=== PATIENT | male | born 1955 | race Caucasian/White ===

== ENCOUNTER 2021-07-03 08:25 | Outpatient (REF) | payer OTHER, SELFPAY ==
[2021-07-03 08:40] LABS: MANUAL DIFF FLAG NO
[2021-07-03 09:15] LABS: Basophils Percent Auto 0.4 % (0-2); Eosinophils Absolute Auto 0.1 X10*3/uL (0.0-0.4); Eosinophils Percent Auto 2.3 % (0-4); Hematocrit 44.2 % (42.0-52.0); Hemoglobin 14.7 g/dl (14.0-18.0); Imm Gran Abs Auto 0.01 X10*3/uL (0.00-0.03); Imm Gran Pct Auto 0.2 % (0.0-0.4); Lymphocytes Absolute Auto 1.7 X10*3/uL (1.2-4.9); Lymphocytes Percent Auto 30.3 % (20-40); Mean Corpuscular HGB Conc 33.3 g/dl (31.0-36.0); Mean Corpuscular Hemoglobin 30.1 pg (27.0-33.0); Mean Corpuscular Volume 90.4 fL (80.0-98.0); Mean Platelet Volume 9.7 fL (9.4-12.4); Monocytes Absolute Auto 0.5 X10*3/uL (0.1-1.2); Monocytes Percent Auto 8.4 % (2-11); Neutrophils Absolute Auto 3.3 x10*3/uL (2.0-8.3); Neutrophils Percent Auto 58.4 % (45-73); Platelet Count 216 X10*3/uL (160-400); Red Blood Count 4.89 X10*6/uL (4.60-5.80); Red Cell Distribution Width 12.2 % (11.0-16.0); White Blood Count 5.6 X10*3/uL (4.8-10.8)
[2021-07-03 10:07] LABS: Alanine Aminotransferase 25 U/L (0-40); Albumin Level 4.2 g/dL (3.5-5.0); Alkaline Phosphatase 52 U/L (39-117); Anion Gap 12 (12-20); Aspartate Amino Transferase 24 U/L (5-37); Bilirubin Total 0.7 mg/dL (0.0-1.0); Blood Urea Nitrogen 20 mg/dL (9-16); Calcium 9.6 mg/dL (8.4-10.2); Carbon Dioxide 27 mmol/L (22-29); Chloride 108 mmol/L (96-108); Cholesterol 190 mg/dL; Estimated Glomerular Filt Rate > 60; Glucose Fasting 94 mg/dL (60-99); HDL Cholesterol 50 mg/dL; LDL Cholesterol Calculated 121 mg/dl; Potassium 4.7 mmol/L (3.3-5.1); Sodium 142 mmol/L (135-145); Triglycerides 98 mg/dL
[2021-07-03 10:16] LABS: Prostate Specific Antigen 0.37 ng/mL (<0.05-4.0)
== END 2021-07-03 08:26 | disposition home or self-care (01) ==
LOC: HO.LAB 08:25
PROVIDERS: Visit Provider Internal Medicine
DX: Z12.5 Encounter for screening for malignant neoplasm of prostate (principal); E78.00 Pure hypercholesterolemia, unspecified; N40.0 Benign prostatic hyperplasia without lower urinary tract symptoms; J30.1 Allergic rhinitis due to pollen
CPT/HCPCS: 36415; 80053; 80061; 84153; 85025

== ENCOUNTER 2022-07-05 15:49 | Outpatient (REF) | payer MEDICARE, SELFPAY ==
[2022-07-05 16:10] LABS: MANUAL DIFF FLAG NO
[2022-07-05 17:29] LABS: Basophils Percent Auto 0.3 % (0-2); Eosinophils Absolute Auto 0.2 X10*3/uL (0.0-0.4); Eosinophils Percent Auto 3.2 % (0-4); Hematocrit 42.6 % (42.0-52.0); Hemoglobin 14.1 g/dl (14.0-18.0); Imm Gran Abs Auto 0.01 X10*3/uL (0.00-0.03); Imm Gran Pct Auto 0.2 % (0.0-0.4); Lymphocytes Absolute Auto 1.9 X10*3/uL (1.2-4.9); Lymphocytes Percent Auto 31.8 % (20-40); Mean Corpuscular HGB Conc 33.1 g/dl (31.0-36.0); Mean Corpuscular Hemoglobin 30.6 pg (27.0-33.0); Mean Corpuscular Volume 92.4 fL (80.0-98.0); Mean Platelet Volume 9.9 fL (9.4-12.4); Monocytes Absolute Auto 0.4 X10*3/uL (0.1-1.2); Neutrophils Absolute Auto 3.4 x10*3/uL (2.0-8.3); Neutrophils Percent Auto 57.5 % (45-73); Platelet Count 212 X10*3/uL (160-400); Red Blood Count 4.61 X10*6/uL (4.60-5.80)
[2022-07-05 17:42] LABS: Anion Gap 12 (12-20); Blood Urea Nitrogen 14 mg/dL (9-16); Calcium 9.5 mg/dL (8.4-10.2); Carbon Dioxide 27 mmol/L (22-29); Chloride 108 mmol/L (96-108); Estimated Glomerular Filt Rate > 60; Glucose Random 87 mg/dL (60-115); Potassium 5.3 mmol/L (3.3-5.1); Sodium 142 mmol/L (135-145)
== END 2022-07-05 15:50 | disposition home or self-care (01) ==
LOC: HO.LAB 15:49
PROVIDERS: PCP Internal Medicine; Visit Provider Internal Medicine
DX: Z01.818 Encounter for other preprocedural examination (principal); M54.9 Dorsalgia, unspecified
CPT/HCPCS: 36415; 80048; 85025

== ENCOUNTER 2022-07-09 07:37 | Outpatient (REF) | payer MEDICARE, SELFPAY ==
[2022-07-09 07:56] LABS: MANUAL DIFF FLAG NO
[2022-07-09 08:55] LABS: Basophils Percent Auto 0.3 % (0-2); Eosinophils Absolute Auto 0.2 X10*3/uL (0.0-0.4); Eosinophils Percent Auto 3.1 % (0-4); Hemoglobin 14.6 g/dl (14.0-18.0); Imm Gran Abs Auto 0.01 X10*3/uL (0.00-0.03); Imm Gran Pct Auto 0.2 % (0.0-0.4); Lymphocytes Absolute Auto 1.7 X10*3/uL (1.2-4.9); Lymphocytes Percent Auto 29.7 % (20-40); Mean Corpuscular HGB Conc 33.2 g/dl (31.0-36.0); Mean Corpuscular Hemoglobin 30.4 pg (27.0-33.0); Mean Corpuscular Volume 91.7 fL (80.0-98.0); Mean Platelet Volume 9.5 fL (9.4-12.4); Monocytes Absolute Auto 0.5 X10*3/uL (0.1-1.2); Monocytes Percent Auto 8.2 % (2-11); Neutrophils Absolute Auto 3.4 x10*3/uL (2.0-8.3); Neutrophils Percent Auto 58.5 % (45-73); Platelet Count 229 X10*3/uL (160-400); Red Cell Distribution Width 11.8 % (11.0-16.0); White Blood Count 5.7 X10*3/uL (4.8-10.8)
[2022-07-09 09:19] LABS: Alanine Aminotransferase 24 U/L (0-40); Albumin Level 4.4 g/dL (3.5-5.0); Alkaline Phosphatase 58 U/L (39-117); Anion Gap 15 (12-20); Aspartate Amino Transferase 26 U/L (5-37); Bilirubin Total 0.8 mg/dL (0.0-1.0); Blood Urea Nitrogen 12 mg/dL (9-16); Calcium 9.8 mg/dL (8.4-10.2); Carbon Dioxide 27 mmol/L (22-29); Chloride 105 mmol/L (96-108); Cholesterol 180 mg/dL; Estimated Glomerular Filt Rate > 60; Glucose Random 91 mg/dL (60-115); HDL Cholesterol 47 mg/dL; LDL Cholesterol Calculated 115 mg/dl; Potassium 4.8 mmol/L (3.3-5.1); Sodium 142 mmol/L (135-145); Triglycerides 94 mg/dL
[2022-07-09 10:16] LABS: Prostate Specific Antigen 0.39 ng/mL (<0.05-4.0)
== END 2022-07-09 07:38 | disposition home or self-care (01) ==
LOC: HO.LAB 07:37
PROVIDERS: PCP Internal Medicine; Visit Provider Internal Medicine
DX: Z12.5 Encounter for screening for malignant neoplasm of prostate (principal); E78.00 Pure hypercholesterolemia, unspecified; N40.0 Benign prostatic hyperplasia without lower urinary tract symptoms; J30.1 Allergic rhinitis due to pollen
CPT/HCPCS: 36415; 80053; 80061; 84153; 85025

== ENCOUNTER 2023-08-09 07:48 | Outpatient (REF) | payer BC, SELFPAY ==
[2023-08-09 08:05] LABS: MANUAL DIFF FLAG NO
[2023-08-09 08:36] LABS: Basophils Percent Auto 0.6 % (0-2); Eosinophils Absolute Auto 0.2 X10*3/uL (0.0-0.4); Eosinophils Percent Auto 3.6 % (0-4); Hematocrit 41.4 % (42.0-52.0); Hemoglobin 14.1 g/dl (14.0-18.0); Lymphocytes Absolute Auto 1.7 X10*3/uL (1.2-4.9); Lymphocytes Percent Auto 34.3 % (20-40); Mean Corpuscular HGB Conc 34.1 g/dl (31.0-36.0); Mean Corpuscular Hemoglobin 31.6 pg (27.0-33.0); Mean Corpuscular Volume 92.8 fL (80.0-98.0); Mean Platelet Volume 9.7 fL (9.4-12.4); Monocytes Absolute Auto 0.4 X10*3/uL (0.1-1.2); Monocytes Percent Auto 8.1 % (2-11); Neutrophils Absolute Auto 2.7 x10*3/uL (2.0-8.3); Neutrophils Percent Auto 53.4 % (45-73); Platelet Count 185 X10*3/uL (160-400); Red Blood Count 4.46 X10*6/uL (4.60-5.80); Red Cell Distribution Width 12.5 % (11.0-16.0)
[2023-08-09 09:09] LABS: Alanine Aminotransferase 19 U/L (0-40); Alkaline Phosphatase 52 U/L (39-117); Anion Gap 10 (12-20); Aspartate Amino Transferase 22 U/L (5-37); Bilirubin Total 0.5 mg/dL (0.0-1.0); Blood Urea Nitrogen 20 mg/dL (9-16); Calcium 9.4 mg/dL (8.4-10.2); Carbon Dioxide 27 mmol/L (22-29); Chloride 109 mmol/L (96-108); Cholesterol 186 mg/dL (<200); Estimated Glomerular Filt Rate > 60; Glucose Fasting 98 mg/dL (60-99); HDL Cholesterol 55 mg/dL (>40); LDL Cholesterol Calculated 113 mg/dL (<100); Sodium 142 mmol/L (135-145); Total Protein 6.9 g/dL (6.5-8.0); Triglycerides 92 mg/dL (<150)
[2023-08-09 09:31] LABS: Prostate Specific Antigen 0.38 ng/mL (<0.05-4.0)
== END 2023-08-09 07:49 | disposition home or self-care (01) ==
LOC: HO.LAB 07:48
PROVIDERS: PCP Internal Medicine; Visit Provider Internal Medicine
DX: Z12.5 Encounter for screening for malignant neoplasm of prostate (principal); E78.00 Pure hypercholesterolemia, unspecified; N40.0 Benign prostatic hyperplasia without lower urinary tract symptoms
CPT/HCPCS: 36415; 80053; 80061; 84153; 85025

== ENCOUNTER 2024-05-09 14:06 | Outpatient (REF) | payer BC, SELFPAY ==
[2024-05-09 15:07] LABS: Appearance Urine Clear; Color Urine Yellow; Glucose Urine UA Negative (Negative); Leukocyte Esterase Urine Negative (Negative); Nitrite Urine Negative (Negative); Specific Gravity - Urine <= 1.005 (1.005-1.025); Urine Blood Negative (Negative); Urine Ketones Negative (Negative); Urine Protein Negative (Neg-Trace)
[2024-05-09 15:35] LABS: Anion Gap 9 (12-20); Blood Urea Nitrogen 15 mg/dL (9-16); Calcium 9.9 mg/dL (8.4-10.2); Carbon Dioxide 28 mmol/L (22-29); Chloride 110 mmol/L (96-108); Estimated Glomerular Filt Rate > 60; Glucose Random 99 mg/dL (60-115); Potassium 4.4 mmol/L (3.3-5.1); Sodium 143 mmol/L (135-145)
[2024-05-09 15:51] LABS: Prostate Specific Antigen 0.45 ng/mL (<0.05-4.0)
== END 2024-05-09 14:07 | disposition home or self-care (01) ==
LOC: HO.LAB 14:06
PROVIDERS: PCP Internal Medicine; Visit Provider Internal Medicine
DX: R35.0 Frequency of micturition (principal); Z12.5 Encounter for screening for malignant neoplasm of prostate
CPT/HCPCS: 36415; 80048; 81003; 84153; 87086

== ENCOUNTER 2024-07-25 08:05 | Outpatient (REF) | payer BC, SELFPAY ==
[2024-07-25 08:24] LABS: MANUAL DIFF FLAG NO
[2024-07-25 08:34] LABS: Basophils Percent Auto 0.3 % (0-2); Eosinophils Absolute Auto 0.2 X10*3/uL (0.0-0.4); Eosinophils Percent Auto 3.2 % (0-4); Hematocrit 42.3 % (42.0-52.0); Hemoglobin 14.5 g/dl (14.0-18.0); Imm Gran Abs Auto 0.02 X10*3/uL (0.00-0.03); Imm Gran Pct Auto 0.3 % (0.0-0.4); Lymphocytes Percent Auto 32.9 % (20-40); Mean Corpuscular HGB Conc 34.3 g/dl (31.0-36.0); Mean Corpuscular Hemoglobin 30.8 pg (27.0-33.0); Mean Corpuscular Volume 89.8 fL (80.0-98.0); Mean Platelet Volume 8.9 fL (9.4-12.4); Monocytes Absolute Auto 0.5 X10*3/uL (0.1-1.2); Monocytes Percent Auto 7.6 % (2-11); Neutrophils Absolute Auto 3.3 x10*3/uL (2.0-8.3); Neutrophils Percent Auto 55.7 % (45-73); Platelet Count 224 X10*3/uL (160-400); Red Blood Count 4.71 X10*6/uL (4.60-5.80); Red Cell Distribution Width 12.1 % (11.0-16.0)
[2024-07-25 08:57] LABS: Appearance Urine Clear; Color Urine Yellow; Glucose Urine UA Negative (Negative); Leukocyte Esterase Urine Negative (Negative); Nitrite Urine Negative (Negative); Specific Gravity - Urine 1.015 (1.005-1.025); Urine Blood Negative (Negative); Urine Ketones Negative (Negative); Urine Protein Negative (Neg-Trace)
[2024-07-25 09:13] LABS: Alanine Aminotransferase 30 U/L (0-40); Albumin Level 4.1 g/dL (3.5-5.0); Alkaline Phosphatase 49 U/L (39-117); Anion Gap 10 (12-20); Aspartate Amino Transferase 28 U/L (5-37); Bilirubin Total 0.5 mg/dL (0.0-1.0); Blood Urea Nitrogen 18 mg/dL (9-16); Calcium 9.6 mg/dL (8.4-10.2); Carbon Dioxide 26 mmol/L (22-29); Chloride 111 mmol/L (96-108); Cholesterol 183 mg/dL (<200); Estimated Glomerular Filt Rate > 60; Glucose Fasting 91 mg/dL (60-99); HDL Cholesterol 42 mg/dL (>40); LDL Cholesterol Calculated 122 mg/dL (<100); Potassium 4.1 mmol/L (3.3-5.1); Sodium 143 mmol/L (135-145); Total Protein 7.1 g/dL (6.5-8.0); Triglycerides 96 mg/dL (<150)
[2024-07-25 09:29] LABS: Prostate Specific Antigen 0.47 ng/mL (<0.05-4.0)
== END 2024-07-25 08:06 | disposition home or self-care (01) ==
LOC: HO.LAB 08:05
PROVIDERS: PCP Internal Medicine; Visit Provider Internal Medicine
DX: N40.0 Benign prostatic hyperplasia without lower urinary tract symptoms (principal); E78.00 Pure hypercholesterolemia, unspecified; Z12.5 Encounter for screening for malignant neoplasm of prostate
CPT/HCPCS: 36415; 80053; 80061; 81003; 84153; 85025

== ENCOUNTER 2024-09-18 08:27 | Outpatient (AMB) | payer BC, SELFPAY ==
[2024-09-18 08:41] VITALS: BP 118/72; PULSE 54; O2SAT 97; BMI 30.6
--- NOTE | 2024-09-18 08:41 | AM.OFFWIN_ITS ---
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 Patient Tobacco Use Status: Never used Tobacco Allergies No Known Allergies Allergy (Mild, Unverified 09/18/24 08:42) NONE Medication List - Last Reconciled 09/18/24 by Gabriela Andersen MD pravastatin mg PO DAILY Do you need a note to return to daycare/school/sports/work: No HPI EP Pain in lt side of neck HPI Details History - The patient is a 69-year-old male pres enting with neck pain. 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 - Pain is noted on the left side of the neck radiating into the shoulder and is exacerbated with movement. - Previous intermittent episodes of cerv ical pain exist but were mild. - Initial management included non-steroi matilda anti-inflammatory drugs and cold therapy. - History of lower back pain post-microd iscectomy with associated scar tissue was notable for requiring gabapentin therapy, later discontinued due to drowsiness. - Patient is on Pravastatin for dyslipid emia management. - No evidence of radicular symptoms or p ast cervical issues interfering significantly with function prior to this incident. Problem List - Neck Pain due to Suspected Cervical Mu scle Strain or Pinched Nerve - Lower Back Pain status post Microdisce ctomy - Dyslipidemia (Patient on Pravastatin) Patient Instructions - Start the prescribed medication for in flammation as directed. - Discontinue ibuprofen once you begin t he new medication. - Schedule an appointment with your prim millinocket care provider if further concerns arise or for continuity of care. - Attend the scheduled X-ray today and a wait further instruction based on findings. Review of Systems - General: No fever no chills - Neurological: No headaches no dizziness - Ear nose throat: No sore throat no hearing difficulty no ear pain - Cardiovascular: No syncope, no chest pain, no palpitations - Gastrointestinal: No nausea vomiting or diarrhea Physical Exam General: No acute distress HEENT: No acute findings Neck: Tenderness on the left side, pain radiating to the shoulder, limited range of motion Respiratory system: Able to talk in full sentences, no audible wheeze Gastrointestinal: No pain Extremities: No new findings GASOLINE FINISHER: Alert awake oriented x3 motor sensory intact Skin: Normal turgor PFSH Social History Patient Tobacco Use Status: Never used Tobacco Physical Exam Vital Signs: Last Vital Signs Pulse 54 09/18/24 08:41 BP 118/72 09/18/24 08:41 Pulse Ox 97 09/18/24 08:41 Oxygen Delivery Method Room Air 09/18/24 08:41 BMI result Body Mass Index 30.6 Assessment & Plan Assessment & Plan (1) Neck pain: Code(s): M54.2 - Cervicalgia Plan History - The patient is a 69-year-old male presenting with neck pain. 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 - Pain is noted on the left side of the neck radiating into the shoulder and is exacerbated with movement. - Previous intermittent episodes of cervical pain exist but were mild. - Initial management included non-steroidal anti-inflammatory drugs and cold therapy. - History of lower back pain post-microdiscectomy with associated scar tissue was notable for requiring gabapentin therapy, later discontinued due to drowsiness. - Patient is on Pravastatin for dyslipidemia management. - No evidence of radicular symptoms or past cervical issues interfering significantly with function prior to this incident. Problem List - Neck Pain due to Suspected Cervical Muscle Strain or Pinched Nerve - Lower Back Pain status post Microdiscectomy - Dyslipidemia (Patient on Pravastatin) Patient Instructions - Start the prescribed medication for inflammation as directed. - Discontinue ibuprofen once you begin the new medication. - Schedule an appointment with your primary care provider if further concerns arise or for continuity of care. - Attend the scheduled X-ray today and await further instruction based on findings. Orders: Orders XR cervical spine 2V Today M54.2 - Cervicalgia Medications: New diclofenac sodium 75 mg PO BID 10 days 20 tabs 0RF pain prednisone 20 mg PO DAILY 3 days 3 tabs 0RF Coding Level of Care Code New Pt Level 3 (81908) Diagnoses Neck pain M54.2
--- OUTSIDE RECORDS SUMMARY | 2024-09-18 08:49 | XMS_ITS | Clinical Summary ---
Author Organization [facility] Address [address] [place] [address] Care Team Providers Care Handbag Designer Name Role Phone Unavailable Primary Care Provider Unavailabl e Social History Tobacco Use Types Packs/Day Years Used Date Smoking Tobacco: Never Assessed Sex and Gender Information Value Date Recorded Sex Assigned at Not on file Gender Identity Not on file Sexual Orientation Not on file Plan of Treatment Health Maintenance Due Date Last Done Comments Hepatitis C Virus Screening 1955 DTaP/Tdap/Td Vaccines (1 - Tdap) 1974 Pneumococcal Vaccines 50+ (1 of 1 - PCV) 2005 Zoster (Shingles) Vaccine (1 of 2) 2005 COVID-19 Vaccine ( - 2023-2 5 season) 2024 RSV Vaccine 60 years and old er and Patients (1 - 1-dose 75+ series) 2030 Hepatitis B Vaccines Aged Out No long er eligible based on patient's age to complete this topic
--- OUTSIDE RECORDS SUMMARY | 2024-09-18 08:49 | XMS_ITS | Clinical Summary ---
Author Organization [facility] Address [address] [place] [address] Care Team Providers Care Rolling Machine Operator Automatic Name Role Phone Darci Montano MD Primary Care Provider [phone] Allergies No known active allergies Medications Medication Sig Dispensed Refills Start Date End Date Status fluticasone (FLONASE) 50 MCG/ACT nasal spray daily. 11 06/07/2018 Active pravastatin (PRAVACHOL) tablet 40 mg Take 1 tablet by mouth daily. 0 06/09/2018 Active ezetimibe (ZETIA) tablet 10 mg Take 1 tablet (10 mg total) by mouth daily. 90 tablet 3 07/24/2018 Active Active Problems Problem Noted Date Diagnosed Date Carotid bruit 06/12/2018 Mixed dyslipidemia 06/12/2018 Vitamin D deficiency 06/12/2018 Social History Tobacco Use Types Packs/Day Years Used Date Smoking Tobacco: Former Smokeless Tobacco: Never Sex and Gender Information Value Date Recorded Sex Assigned at Not on file Gender Identity Not on file Sexual Orientation Not on file Last Filed Vital Signs Vital Sign Reading Time Taken Comments Blood Pressure 118/70 08/17/2018 3:46 PM EST Pulse 47 07/24/2018 3:23 PM EST Temperature - - Respiratory Rate - - Oxygen Saturation - - Inhaled Oxygen Concentration - - Weight 90.7 kg (200 lb) 08/17/2018 3:46 PM EST Height 172.7 cm (5' 8 ) 08/17/2018 3:46 PM EST Body Mass Index 30.41 08/17/2018 3:46 PM EST Plan of Treatment Health Maintenance Due Date Last Done Comments Hepatitis C Screening 1955 COVID-19 Vaccine (#1) 1955 Depression Screening 1967 Preventative Health Evaluation 1973 DTap / Tdap / Td (1 - Tdap) 1974 Colon Cancer Screening (Colonoscopy) 02/27/2000 Shingrix-Zoster Vaccine (1 of 2) 2005 Fall Risk Assessment 02/27/2020 Pneumococcal Vaccine (1 of 1 - PCV) 02/27/2020 Influenza Vaccine (#1) 2024 RSV Adult > 60+ Yrs or Pregn ant (1 - 1-dose 75+ series) 2030 Hepatitis B Vaccines Aged Out No long er eligible based on patient's age to complete this topic RSV Ped < 20 months Aged Out No longe r eligible based on patient's age to complete this topic Care Teams Rolling Machine Operator Automatic Relationship Specialty Start Date End Date Darci Montano MD [address] [place] [address] [address] [place] [address] PCP - General Systems Development Manager 04/18/18
== END 2024-09-18 09:38 | disposition home or self-care (01) ==
PROVIDERS: PCP Internal Medicine; Visit Provider Internal Medicine
DX: M54.2 Cervicalgia (principal)

== ENCOUNTER 2024-09-18 08:27 | Outpatient (REF) | payer BC, SELFPAY ==
--- NOTE | ~2024-09-18 | XR_ITS ---
EXAMINATION: XR CERVICAL SPINE CLINICAL INFORMATION: M54.2 - Cervicalgia COMPARISON: None available. TECHNIQUE: 3 views of the cervical spine were obtained. FINDINGS: There is mild straightening of cervical lordosis. The vertebral heights and alignment is normal. There is mild loss of C5-C6, C6-7 and C7-T1 disc heights with ventral spondylosis. No visible acute fracture, dislocation or lytic process seen. The paravertebral soft tissues are normal. XR/XR cervical spine 2V IMPRESSION: Mild degenerative disc changes C5-C6, C6 testis 7 and C7-T1 disc levels with ventral spondylosis. No visible acute fracture or dislocation seen. Electronically signed by: Bogdan Callaway MD 09/18/2024 02:01 PM DELICIA
--- OUTSIDE RECORDS SUMMARY | 2024-09-18 09:43 | XMS_ITS | Clinical Summary ---
Author Organization [facility] Address [address] [place] [address] Care Team Providers Care Coppersmith Helper Name Role Phone Unavailable Primary Care Provider [...]
--- OUTSIDE RECORDS SUMMARY | 2024-09-18 09:43 | XMS_ITS | Clinical Summary ---
Author Organization [facility] Address [address] [place] [address] Care Team Providers Care Adjustment Supervisor Name Role Phone Darci Montano MD Primary Care Provider [phone] Allergies No known active allergies Medications Medication [...] age to complete this topic Care Teams Adjustment Supervisor Relationship Specialty Start Date End Date Darci Montano MD [address] [place] [address] [address] [place] [address] PCP - General Prescription Eyeglass Maker 04/18/18
== END 2024-09-18 08:28 | disposition home or self-care (01) ==
LOC: HO.HMGCX 08:27
PROVIDERS: PCP Internal Medicine; Visit Provider Internal Medicine
DX: M54.2 Cervicalgia (principal)
CPT/HCPCS: 72040

== ENCOUNTER → 2024-09-18 09:03 | Outpatient (BNV) | payer BC, SELFPAY | PROVIDERS: PCP Internal Medicine; Visit Provider Radiology Diagnostic Radiology | DX: M50.320 Other cervical disc degeneration, mid-cervical region, unspecified level (principal) | CPT/HCPCS: 72040 ==

== ENCOUNTER 2025-01-29 08:15 | Outpatient (AMB) | payer BC, SELFPAY ==
--- NOTE | 2025-01-29 08:16 | MHC.PC.OV ---
Vital Signs 01/29/25 08:19 01/29/25 08:23 Height 5 ft 9 in Weight 92.533 kg BP 118/70 Blood Pressure Location Lt brachial Position Sitting Respiration 14 Pulse 47 L Temp 97.4 F Temp Source Temporal Artery Scan Pulse Oximetry (%) 99 Oxygen Delivery Method Room Air Intake Visit Reasons: annual Gis Physical Scientist Required: No Accompanied by: Self / Same As Patient Allergies No Known Allergies Allergy (Mild, Verified 01/29/25 08:16) NONE Tobacco use date assessed: 01/29/25 HPI HPI Comments History of Present Illness Details 69-year-old male with history of hyperlipidemia, BPH, lumbar disc herniation presents to the office today for management of chronic conditions, to establish care, and for annual physical exam. He currently lives with his and feels safe there. Drinks alcohol twice weekly, 2 drinks per day. History of cigarettes in high school/college and then stopped. Remote history LSD and MJ use in college. He does exercise regularly lifting weights and does follow a healthy diet. He is retired and previously worked in engineering management. Lumbar disc herniation-s/p diskectomy at [facility] L4-L5. He does still have some nerve damage with paresthesias in the right lower extremity and absent patellar reflex. He has gone through extensive physical therapy and does find this helpful. He is now following with [facility] sports on an as-needed basis and has received cortisone injections. He did discontinue his gabapentin. HLD- on pravastatin. Saw cardiology in [place] and was given a booster . Has had negative stress tests Hearing loss/tinnitus-following with audiology in [facility] and does wear hearing aids which has helped both his hearing and tinnitus. BPH- no luts Concerns: Feels bloated, has gained weight last week or so. No changes in diet. Not walking as much or working as much. Health maintenance: Screening colonoscopy 2017, due 2027 PSA up-to-date ROS: General: No fevers, malaise, unintentional weight loss HEENT: No blurred vision, diplopia. No sore throat, nasal congestion, rhinorrhea, sinus pain, ear pain. No hearing loss Neck - no adenopathy Cardiovascular: No chest pain, palpitations, or leg edema Respiratory: No shortness of breath, wheezing, cough GI: No dysphagia, odynophagia, globus sensation. No abdominal pain, nausea, vomiting, diarrhea, constipation, melena, hematochezia : No dysuria, hematuria, increased urinary frequency, decreased urinary output. No testicular swelling or pain. No penile discharge MSK: see hpi Neuro: No headaches, weakness, paresthesias Psych: no depression/anxiery. No AH/VH. No SI/HI Skin: No rashes or lesions EXAM: Constitutional - Awake and Alert, No apparent distress Eyes - PERRLA, EOMI. Anicteric Ears - external ears normal, canals clear, TMs intact and pearly lamar with good cone of light Nose- septum midline, nares clear, no sinus tenderness Mouth/throat- mucosa moist, tongue and uvula midline, no erythema/edema or tonsillar adenopathy. Neck-trachea midline, thyroid symmetric without palpable nodules, no adenopathy Cardiovascular - S1S2, RRR, No edema Respiratory - Normal lung expansion, Normal respiratory effort, No respiratory distress, CTA bilaterally Gastrointestinal - NT / ND; +BS; No rebound or guarding - No CVA tenderness Extremities - no calf tenderness bilaterally, no swelling Musculoskeletal - Normal inspection, normal ROM Skin - Warm/Dry, no concerning lesions Neurological - Alert & oriented x3, CN II-XII in tact, 5/5 strength BUE and BLE, 2+ patellar reflex LLE absent RLE, sensation intact Psychological - Appropriate affect . [facility] Medical History (Updated 01/29/25 @ 09:05 by LUAN Sandoval) Hearing loss of both ears Hyperlipidemia BPH (benign prostatic hyperplasia) Surgical History (Updated 01/29/25 @ 08:32 by LUAN Sandoval) H/O umbilical hernia repair S/P anterior Bankart repair of left shoulder S/P diskectomy History of colonoscopy (~06/28/18) Family History (Updated 01/29/25 @ 08:47 by LUAN Sandoval) Mother COPD (chronic obstructive pulmonary disease) Social History Patient Tobacco Use Status: Former Tobacco user e-Cigarette/Vaping Use: Never Used Questionnaire PHQ-9 Over the last 2 weeks, how often have you been bothered by any of the following problems? 1. Little interest or pleasure in doing things: not at all 2. Feeling down, depressed, or hopeless: not at all 3. Trouble falling or staying asleep, or sleeping too much: not at all 4. Feeling tired or having little energy: not at all 5. Poor appetite or overeating: not at all 6. Feeling bad about yourself - or that you are a failure or have let yourself or your family down: not at all 7. Trouble concentrating on things, such as reading the newspaper or watching television: not at all 8. Moving or speaking so slowly that other people could have noticed. Or the opposite - being so fidgety or restless that you have been moving around a lot more than usual: not at all 9. Thoughts that you would be better off or of hurting yourself in some way: not at all Total score: 0 Depression Screening Interpretation: Negative Depression Screening Done: Yes 15240 - PHQ-9 Billing: Yes Source: Developed by Drs. Saturnino Martínez, Dafne De Los Santos, Adonis Taylor and colleagues, with an educational yoan from [employer]. Thrive Questionnaire Date Thrive assessed: 01/29/25 I am a: Patient What is your living situation today?: I have a steady place to live Within the past 12 months, did the food you bought not last and you didn't have the money to get more?: Never true Within the past 12 months, did you worry whether your food would run out before you got money to buy more?: Never true Do you have trouble paying for medicines?: No Do you have trouble getting transportation to medical appointments?: No Do you have trouble paying your heating and electricity bill?: No Do you have trouble taking care of your child, family member or friend?: No Do you have trouble with day-to-day activities such as bathing, preparing meals, shopping, managing finances, etc.?: No Are you currently unemployed and looking for a job?: No Are you interested in more education?: No THRIVE Score: 0 AUDIT C Alcohol Use Questionnaire (AUDIT-C) 1. How often do you have a drink containing alcohol?: 2-4 times a month 2. How many drinks containing alcohol do you have on a typical day when you are drinking?: 1 or 2 Total Score: 2 HIRO-7 AMB Questionnaire HIRO-7 Date HIRO - 7 assessed: 01/29/25 Feeling nervous, anxious, or on edge: 0 = Not at all Not being able to stop or control worryin = Not at all Worrying too much about different things: 0 = Not at all Trouble relaxin = Not at all Being so restless that it is hard to sit still: 0 = Not at all Becoming easily annoyed or irritable: 0 = Not at all Feeling afraid as if something awful might happen: 0 = Not at all Total HIRO-7 score (0-4 normal; 5-9 mild; 10-14 moderate; 15-21 severe): 0 Source: Developed by Drs. Saturnino Martínez, Dafne De Los Santos, Adonis Taylor and colleagues, with an educational yoan from [employer]. HIRO-7 Assessment Billing HIRO-7 Assessment Tool: HIRO-7 Assessment 77899 Physical exam (Primary Care) Vital Signs: Last Vital Signs Temp 97.4 F 01/29/25 08:23 Pulse 47 L 01/29/25 08:23 Resp 14 01/29/25 08:23 BP 118/70 01/29/25 08:23 Pulse Ox 99 01/29/25 08:23 Oxygen Delivery Method Room Air 01/29/25 08:23 Tobacco/Smoking Status: Tobacco use Status Tobacco use date assessed 01/29/25 01/29/25 08:25 Patient Tobacco Use Status Former Tobacco user 01/29/25 08:25 e-Cigarette/Vaping Use Never Used 01/29/25 08:25 PHQ-9: PHQ-9 Score PHQ-9: Total score 0 01/29/25 08:55 Depression Screening Interpretation: Negative Thrive Assessment: Date of Thrive Assessment Date Thrive assessed 01/29/25 01/29/25 08:55 Coding Level of Care Code Est Pt Level 4 (97357) Est Pt Prev Care >65y(53769) Diagnoses Routine medical exam Z00.00 Hyperlipidemia E78.5 BPH (benign prostatic hyperplasia) N40.0 Abdominal bloating R14.0 Hearing loss of both ears H91.93 Additional Codes PHQ-9 - 22037 - PHQ-9 Billing: Yes ([id number]) HIRO-7 Assessment Billing - HIRO-7 Assessment Tool: HIRO-7 Assessment 33408 ([id number]) Assessment & Plan Assessment & Plan (1) Routine medical exam: Code(s): Z00.00 - Encounter for general adult medical examination without abnormal findings Plan: 69-year-old male presenting for annual physical exam and found to be in a good state of general health. Plan as below. (2) Hyperlipidemia: Code(s): E78.5 - Hyperlipidemia, unspecified Category: Medical Plan: Lipid panel ordered. Continue pravastatin. (3) BPH (benign prostatic hyperplasia): Code(s): N40.0 - Benign prostatic hyperplasia without lower urinary tract symptoms Category: Medical Plan: Stable. No LUTS (4) Abdominal bloating: Code(s): R14.0 - Abdominal distension (gaseous) Category: Medical Plan: Given information on FODMAP diet. Can also use simethicone as needed (5) Hearing loss of both ears: Code(s): H91.93 - Unspecified hearing loss, bilateral Category: Medical Plan: Stable with hearing aids Plan Routine screening labs as ordered below Continue with screening colonoscopies and PSA Continue following for annual skin exams and use sun protection Annual eye exams Wear seat belt in car Recommend regular exercise and healthy diet Follow up in 6 months Orders: Orders Lipid Panel 01/29/25 Z00.00 - Encounter for general adult medical examination without abnormal findings Basic Metabolic Panel 01/29/25 Z00.00 - Encounter for general adult medical examination without abnormal findings
--- OUTSIDE RECORDS SUMMARY | 2025-01-29 08:21 | XMS_ITS | Clinical Summary ---
Author Organization [facility] Address [address] [place] [address] Care Team Providers Care Forest Pathology Associate Professor Name Role Phone Darci Montano MD Primary Care Provider [phone] Allergies No known active allergies Medications Medication [...] 1 - PCV) 02/27/2020 Influenza Vaccine (#1) 2025 RSV Adult > 60+ Yrs or Pregn ant (1 - 1-dose 75+ series) 2030 Hepatitis B Vaccines Aged Out No long er eligible based on patient's age to complete this topic RSV Ped < 20 months Aged Out No longe r eligible based on patient's age to complete this topic Care Teams Forest Pathology Associate Professor Relationship Specialty Start Date End Date Darci Montano MD [address] [place] [address] Dr [address] [place] [address] PCP - General Calendering Supervisor 04/18/18
--- OUTSIDE RECORDS SUMMARY | 2025-01-29 08:21 | XMS_ITS | Patient Health Record ---
Author Organization [facility] Address [address] [place] [address] Care Team Providers Care News Internship Name Role Phone Dusty (RETIRED) Darci THOMAS Primary Care Provide r Tomy Loving Jr Unavailable Reason For Referral No Information Medications Medication SIG (Take, Route, Frequency, Duration) Notes Start Date End Date Status Pravastatin Sodium 40 MG 1 tablet Orally Once a day Active Fluticasone Propionate 50 MCG/ACT 1 spray in each nostril Nasally Once a day Active Colyte with Flavor Packs 240 GM As directed Orally Over the specified time. for 1 day(s) Active Social History Tobacco Use: Social History Observation Description Date Details (start date - stop date) Never Smoker NA - NA Tobacco Use/Smoking Question Answer Notes Patient is a nonsmoker Alcohol Screen Question Answer Notes Did you have a drink contain ing alcohol in the past year? Yes How often did you have a dri nk containing alcohol in the past year? 2 to 3 times a week (3 points) How many drinks did you have on a typical day when you were drinking in the past year? 1 or 2 drinks (0 point) How often did you have 6 or more drinks on one occasion in the past year? Never (0 point) Points 3 Interpretation Negative Problems Problem Type SNOMED Code ICD Code Onset Dates Problem Status W/U Status Risk Notes Problem [id number] Colon cancer screening (Z12.11) Active confirmed Problem 46501337 Encounter for other preprocedural examination (Z01.818) Active confirmed Plan Of Treatment Future Test Test Name Order Date COLONOSCOPY 03/16/2018 Insurance Providers Payer Name Payer Address Payer Phone Subscriber Number Group Number Insured Name Patient Relationship to Insured Coverage Start Date Coverage End Date [facility] [address] [place], [place] [id number] [phone] [id number] VISHAL ACUNA Self - patient is the insured Medical (General) History Medical History History ICD Code elevated cholesterol deviated septum Surgical History Surgery Date(Month/Year) shoulder surgery 1998 umbilical hernia repair 2003
--- OUTSIDE RECORDS SUMMARY | 2025-01-29 08:21 | XMS_ITS | Clinical Summary ---
Author Organization [facility] Address [address] [place] [address] Care Team Providers Care Hat And Cap Opener Name Role Phone Unavailable Primary Care Provider Unavailabl e Social History Tobacco Use Types Packs/Day Years Used Date Smoking Tobacco: Never Assessed Sex and Gender Information Value Date Recorded Sex Assigned at Not on file Legal Sex Male 11:30 PM EDT Gender Identity Not on file Sexual Orientation [...]
[2025-01-29 08:23] VITALS: BP 118/70; PULSE 47; RESP 14; TEMP 36.3; O2SAT 99
== END 2025-01-29 08:51 | disposition home or self-care (01) ==
LOC: HO.HMCHD 08:15
PROVIDERS: PCP Internal Medicine; Visit Provider Physician Assistant
DX: Z00.00 Encounter for general adult medical examination without abnormal findings (principal); R14.0 Abdominal distension (gaseous); E78.5 Hyperlipidemia, unspecified; N40.0 Benign prostatic hyperplasia without lower urinary tract symptoms; H91.93 Unspecified hearing loss, bilateral

== ENCOUNTER → 2025-01-29 08:15 | Outpatient (BNVA) | payer BC, SELFPAY | PROVIDERS: PCP Internal Medicine; Visit Provider Physician Assistant | DX: Z00.00 Encounter for general adult medical examination without abnormal findings (principal); E78.5 Hyperlipidemia, unspecified; N40.0 Benign prostatic hyperplasia without lower urinary tract symptoms; R14.0 Abdominal distension (gaseous); H91.93 Unspecified hearing loss, bilateral; Z79.899 Other long term (current) drug therapy; Z13.31 Encounter for screening for depression; Z13.30 Encounter for screening examination for mental health and behavioral disorders, unspecified | CPT/HCPCS: 96127 ==

== ENCOUNTER 2025-01-29 09:13 | Outpatient (REF) | payer BC, SELFPAY ==
[2025-01-29 10:46] LABS: Cholesterol 178 mg/dL (<200); HDL Cholesterol 51 mg/dL (>40); Triglycerides 108 mg/dL (<150)
== END 2025-01-29 09:14 | disposition home or self-care (01) ==
LOC: HO.10HDL 09:13
PROVIDERS: Visit Provider Physician Assistant
DX: Z00.00 Encounter for general adult medical examination without abnormal findings (principal)
CPT/HCPCS: 36415; 80061